=== PATIENT | male | born 1955 | race African-American/Black ===

== ENCOUNTER 2019-06-21 01:20 | Inpatient (IN) ==
[2019-06-21 02:09] LABS: BASO# 0.06 X1000 (0.0-0.2); BASO% 0.9 % (0.0-0.8); EOS# 0.16 X1000 (0.0-0.7); EOS% 2.3 % (0.0-10.0); HEMATOCRIT 41.1 % (42.0-52.0); HEMOGLOBIN 13.2 g/dL (14.0-18.0); IMM GRAN# 0.04 X1000 (0.0-0.04); IMM GRAN% 0.6 % (0.0-0.5); LYMPH# 1.61 X1000 (1.2-3.4); LYMPH% 23.2 % (20.5-51.1); MCH 26.4 PG (27-31); MCHC 32.1 g/dL (33-37); MCV 82.2 FL (81-99); MONO# 0.81 X1000 (0.11-0.59); MONO% 11.7 % (1.7-9.3); MPV 10.6 FL (7.4-10.4); NEUT# 4.26 X1000 (1.4-6.5); NEUT% 61.3 % (42.2-75.2); PLT 366 X1000 (130-400); RDW 15.1 % (11.5-14.5); WBC 6.94 X1000 (4.8-10.8)
[2019-06-21 03:38] LABS: AGAP 13; ALBUMIN 4.5 g/dL (3.5-5.0); ALKALINE PHOSPHATASE 131 U/L (32-122); BUN 12 mg/dL (8-22); CALCIUM 9.7 mg/dL (8.8-10.2); CHLORIDE 98 mmol/L (98-107); COSMO 275; CREATININE 0.8 mg/dL (0.7-1.2); ESTIMATED GFR > 60; GLUCOSE 187 mg/dL (70-104); GOT 61 U/L (10-34); GPT 50 U/L (10-44); MAGNESIUM 1.7 mg/dL (1.5-2.7); POTASSIUM 5.4 mmol/L (3.5-5.1); SODIUM 135 mmol/L (136-145); TCO2 24 mmol/L (25-35); TOTAL PROTEIN 8.2 g/dL (6.3-8.3)
[2019-06-21 04:11] LABS: URINE SOURCE CLEAN CATCH
[2019-06-21 04:14] LABS: BILIRUBIN URINE NEGATIVE (NEGATIVE); BLOOD URINE NEGATIVE (NEGATIVE); COLOR YELLOW; GLUCOSE URINE 70 mg/dL (NEGATIVE); KETONE URINE NEGATIVE (NEGATIVE); LEUKOCYTES URINE NEGATIVE (NEGATIVE); NITRITE URINE NEGATIVE (NEGATIVE); PH URINE 6.5; PROTEIN URINE TRACE mg/dL (NEGATIVE); TURBIDITY URINE CLEAR (CLEAR); UROBILINOGEN URINE NORMAL (NORMAL)
[2019-06-21 04:35] LABS: UR AMPHETAMINES QUAL NONE DETECTED (NONE DETECT)
[2019-06-21 04:36] LABS: UR BARBITUATES QUAL NONE DETECTED (NONE DETECT); UR BENZODIAZEPIN QUAL NONE DETECTED (NONE DETECT); UR CANNABINOIDS QUAL NONE DETECTED (NONE DETECT); UR COCAINE QUAL NONE DETECTED (NONE DETECT); UR METHADONE QUAL NONE DETECTED (NONE DETECT); UR METHAMPHETAMINE QUAL NONE DETECTED (NONE DETECT); UR OPIATES QUAL NONE DETECTED (NONE DETECT); UR OXYCODONE QUAL NONE DETECTED (NONE DETECT); UR PCP QUAL NONE DETECTED (NONE DETECT); UR PROPOXYPHENE QUAL NONE DETECTED (NONE DETECT); UR TCA QUAL PRESUMPTIVE POSITIVE (NONE DETECT)
[2019-06-21 04:41] LABS: UR EPITHELIAL CELLS <10 /HPF (<10); URINE BACTERIA NEGATIVE /HPF; URINE CASTS NONE SEEN; URINE RBC <10 /HPF (<10); URINE SMALL ROUND CELLS NONE SEEN; URINE WBC <10 /HPF (<10); URINE YEAST NONE SEEN
--- NOTE | 2019-06-21 05:33 | PROVIDER DOCUMENTATION ---
This chart was entered by Imani Serrano Scribe, acting as scribe for Deuce Joy DO. HPI-Head Injury - General Chief Complaint: Fall Stated Complaint: FALL Time Seen by Provider: 06/21/19 01:26 Source: patient Allergies/Adverse Reactions: Patient Allergies Allergy/AdvReac Type Severity Reaction Status Date / Time cephalexin Allergy Unknown Verified 04/18/18 17:31 ibuprofen Allergy Unknown Verified 04/18/18 17:31 reactive tst AdvReac Unknown Uncoded 04/18/18 17:31 Home Medications: Home Medication List Medication Instructions Recorded Confirmed Last Taken Type Amlodipine [Norvasc] 5 mg PO DAILY 06/11/15 06/11/15 06/11/15 History Aripiprazole 30 mg PO QHS 06/11/15 06/11/15 06/10/15 History Doxepin HCl 2 cap PO QHS 06/11/15 06/11/15 06/10/15 History Fluphenazine Decanoate [Prolixin-D] 125 mg IM DIRECTED 06/11/15 06/11/15 06/05/15 History Hydrochlorothiazide 25 mg PO DAILY 06/11/15 06/11/15 06/11/15 History Lisinopril 20 mg PO DAILY 06/11/15 06/11/15 06/11/15 History Meclizine [Antivert] 12.5 mg PO TID PRN #12 tablet 06/11/15 Unknown Rx Melatonin 3 mg PO QHS 06/11/15 06/11/15 06/10/15 History Metformin HCl 500 mg PO BID 06/11/15 06/11/15 06/11/15 History Multivit,Tx with Iron,Minerals 1 each PO DAILY 06/11/15 06/11/15 06/11/15 History [Thera-M] Pyridoxine 50 mg PO DAILY 06/11/15 06/11/15 06/11/15 History Naproxen 500 mg PO BID PRN PRN #20 tab 04/09/17 Unknown Rx Acetaminophen [Pain Relief] 650 mg PO Q4-6H PRN PRN #50 tab 04/18/18 Unknown Rx Amoxicillin 500 mg PO TID #42 cap 04/18/18 Unknown Rx Mupirocin Calcium [Bactroban Nasal] 1 gm NS BID 7 Days #1 oint...g. 04/18/18 Unknown Rx Oxymetazoline Nasal [place] [Afrin 2 spray MAYELA Q12HR #1 bottle 04/18/18 Unknown Rx Nasal [place]] Prednisone 20 mg PO BID #10 tab 04/18/18 Unknown Rx - History of Present Illness-Head Injury Nature of Presenting Problem: Patient is a 64 y/o male presenting to the ED today c/o head injury. Patient was brought in after having a fall at the [facility] where he resides immediately prior to arrival. Patient reports he has been having difficulty walking over the last week. Patient states he was seen at his PCP about this on Friday where he was diagnosed with vertigo. Patient does not complain about dizziness but reports he has difficulty ambulating because his "legs won't work". Patient reports history of hypertension and non-insulin dependent diabetes but denies prior strokes. Patient denies all other signs/symptoms. Onset/Duration: reports: just prior to arrival Loss of Consciousness: no loss of consciousness Injury Associated Symptoms: reports: weakness (left sided - preceded fall), trouble walking (preceded fall) Locality of [place]: Home Similar Symptoms Previously?: No Recently seen or treated by another doctor?: Yes (seen by PCP Dr. Juárez on 06/18) Review of Systems - Adult - REVIEW OF SYSTEMS - ADULT Constitutional: denies: chills, fever Eyes: reports: no symptoms reported Ears, Nose, Mouth & Throat: reports: no symptoms reported Cardiovascular: denies: chest pain Respiratory: denies: cough, shortness of breath Gastrointestinal: denies: abdominal pain, diarrhea, nausea, vomiting Genitourinary: reports: no symptoms reported Musculoskeletal: reports: no symptoms reported Integumentary: reports: no symptoms reported Neurological: reports: slurred speech, other (left sided weakness) Psychiatric: reports: no symptoms reported Endocrine: reports: no symptoms reported Hematologic/Lymphatic: reports: no symptoms reported Allergic/Immunologic: reports: no symptoms reported All Other Systems: Reviewed and Negative Past History - Adult - PAST MEDICAL HISTORY-ADULT Review of Records: reports: Old Records Reviewed, Nursing Assessment Review, Medications Reviewed, Social history reviewed & non-contributory. Major Childhood Illnesses: reports: denies history Cardiovascular: reports: HTN Respiratory: reports: asthma, tuberculosis (hist of ) Gastrointestinal: reports: hepatitis (C) Obstetrical/Gynecological: reports: denies history Genitourinary: reports: denies history Musculoskeletal: reports: denies history Neurological: reports: denies history Psychiatric: reports: schizophrenia Endocrine/Immune: reports: anemia Other Conditions: reports: denies history - PRIOR SURGERIES/PROCEDURES Surgical/Procedure History: reports: reviewed, not pertinent - IMMUNIZATION STATUS Childhood Immunizations: See Nurse Assessment Flu Vaccine: See Nurse Assessment - FAMILY HISTORY Family History: reviewed, not pertinent - SOCIAL HISTORY Smoking: cigarettes, greater than 1 pack/day Physical Exam- Neurological - Physical Exam-Neuro Initial Vital Signs Reviewed: Yes General Appearance: alert, no apparent distress, slow to respond Eye Exam: bilateral eye: EOMI, other (bilateral cataracts, can't see eye grounds) HENMT: normocephalic/atraumatic, moist mucous membranes, normal ENT inspection, pharynx normal Head Injury: no evidence of injury Neck: full range of motion, normal inspection Respiratory: no respiratory distress, no accessory muscle use, decreased breath sounds (bases rt>lt pos: hx COPD/RAD sat : 91% RA 97% 2LNC), crackles Cardiovascular: regular rate, rhythm, no edema, no murmur Abdominal Exam: non tender, soft, abnormal bowel sounds (hypoactive) Lymphatic: no adenopathy Extremity: normal range of motion, normal gait, normal inspection zinc plater Exam: normal hearing, normal speech, tongue deviation to R Coordination/Gait: ABN nose to finger (R) (passes plane) Motor/Sensory: pronator drift (L) (right upper and lower extremities), other (unable to dorsiflex left foot) Neurologic: motor weakness Integumentary: normal color, normal turgor, warm/dry Psych/Mental Status: normal mood/affect, normal thought content, normal thought process - Glascow Coma Scale Total Glascow Score: 15 Progress - PLAN OF CARE/RESULTS Progress/Plan/Lab Results: Vital Signs - 8 hr 06/21/19 01:20 06/21/19 04:50 Temperature 97.7 F Pulse Rate 88 72 Respiratory Rate 18 16 Blood Pressure 143/79 126/78 O2 Sat by Pulse Oximetry 98 98 Laboratory Results - last 24 hr 06/21/19 06/21/19 06/21/19 01:45 01:45 03:45 WBC 6.94 RBC 5.00 Hgb 13.2 L Hct 41.1 L MCV 82.2 MCH 26.4 L MCHC 32.1 L RDW Std Deviation 15.1 H Plt Count 366 MPV 10.6 H Immature Gran % (Auto) 0.6 H Neut % (Auto) 61.3 Lymph % (Auto) 23.2 [place] % (Auto) 11.7 H Eos % (Auto) 2.3 Baso % (Auto) 0.9 H Immature Gran # (Auto) 0.04 Neut # (Auto) 4.26 Lymph # (Auto) 1.61 [place] # (Auto) 0.81 H Eos # (Auto) 0.16 Baso # (Auto) 0.06 Sodium 135 L Potassium 5.4 H Chloride 98 Carbon Dioxide 24 L Anion Gap 13 BUN 12 Creatinine 0.8 Estimated GFR/1.73 m2 > 60 BUN/Creatinine Ratio 15 Glucose 187 H Calculated Osmolality 275 Calcium 9.7 Magnesium 1.7 Total Bilirubin 0.40 AST 61 H ALT 50 H Alkaline Phosphatase 131 H Total Protein 8.2 Albumin 4.5 Globulin 4.0 Albumin/Globulin Ratio 1.0 Urine Source CLEAN CATCH Urine Color YELLOW Urine Turbidity CLEAR Urine pH 6.5 Ur Specific [place] 1.010 Urine Protein TRACE A Ur Glucose (Stick) 70 A Ur Ketones (Stick) NEGATIVE Urine Blood NEGATIVE Urine Nitrite NEGATIVE Urine Bilirubin NEGATIVE Urobilinogen Dipstick NORMAL Urine Leukocytes NEGATIVE Urine WBC (Auto) <10 Urine RBC (Auto) <10 U Epithel Cells (Auto) <10 Urine Bacteria (Auto) NEGATIVE Urine Crystals Not Reportable Small Round Cells NONE SEEN Urine Casts NONE SEEN Urine Yeast-like Cells NONE SEEN Urine Opiates Screen Ur Oxycodone Screen Urine Methadone Screen U Propoxyphene Qual Ur Barbituates Screen Ur Tricyclics Screen Ur Phencyclidine Scrn Ur Amphetamines Screen U Methamphetamines Scrn U Benzodiazepines Scrn Urine Cocaine Screen U Cannabinoids Screen 06/21/19 03:45 WBC RBC Hgb Hct MCV MCH MCHC RDW Std Deviation Plt Count MPV Immature Gran % (Auto) Neut % (Auto) Lymph % (Auto) [place] % (Auto) Eos % (Auto) Baso % (Auto) Immature Gran # (Auto) Neut # (Auto) Lymph # (Auto) [place] # (Auto) Eos # (Auto) Baso # (Auto) Sodium Potassium Chloride Carbon Dioxide Anion Gap BUN Creatinine Estimated GFR/1.73 m2 BUN/Creatinine Ratio Glucose Calculated Osmolality Calcium Magnesium Total Bilirubin AST ALT Alkaline Phosphatase Total Protein Albumin Globulin Albumin/Globulin Ratio Urine Source Urine Color Urine Turbidity Urine pH Ur Specific [place] Urine Protein Ur Glucose (Stick) Ur Ketones (Stick) Urine Blood Urine Nitrite Urine Bilirubin Urobilinogen Dipstick Urine Leukocytes Urine WBC (Auto) Urine RBC (Auto) U Epithel Cells (Auto) Urine Bacteria (Auto) Urine Crystals Small Round Cells Urine Casts Urine Yeast-like Cells Urine Opiates Screen NONE DETECTED Ur Oxycodone Screen NONE DETECTED Urine Methadone Screen NONE DETECTED U Propoxyphene Qual NONE DETECTED Ur Barbituates Screen NONE DETECTED Ur Tricyclics Screen PRESUMPTIVE POSITIVE A Ur Phencyclidine Scrn NONE DETECTED Ur Amphetamines Screen NONE DETECTED U Methamphetamines Scrn NONE DETECTED U Benzodiazepines Scrn NONE DETECTED Urine Cocaine Screen NONE DETECTED U Cannabinoids Screen NONE DETECTED Orders Category Date Time Status IV Insertion ORDERED Care 06/21/19 01:[address] HEAD W/O CONTRAST [CT] Stat Exams 06/21/19 01:37 Taken CBC WITH ELECTRONIC DIFF [HEME] Stat Lab 06/21/19 01:45 Completed COMPREHENSIVE METABOLIC PANEL [CHEM] Stat Lab 06/21/19 01:45 Completed MAGNESIUM [CHEM] Stat Lab 06/21/19 01:45 Completed UA NIMS W/REFLEX CULT [URINALYSIS] Stat Lab 06/21/19 03:45 Completed URINE DRUG SCREEN PL Stat Lab 06/21/19 03:45 Completed URINE MANUAL MICROSCOPIC [URINALYSIS] Stat Lab 06/21/19 03:45 Completed Result Diagrams: 06/21/19 01:45 06/21/19 01:45 - REASSESSMENT Reassessment #1 Status: unchanged (still has lt side weakness blood pressure has improved discussed labs/xrays with patient in depth --) Reassessment #2 Time Reassessed: 05:32 Departure - Departure Date of Disposition Decision: 06/21/19 Time of Disposition Decision: 04:53 DIAGNOSIS: HTN (hypertension), malignant CVA (cerebral vascular accident) Qualifiers: CVA mechanism: unspecified Qualified Code(s): I63.9 - Cerebral infarction, unspecified COPD (chronic obstructive pulmonary disease) Qualifiers: COPD type: unspecified COPD Qualified Code(s): J44.9 - Chronic obstructive pulmonary disease, unspecified Disposition: ADMITTED INPATIENT 09 Certified Medical Emergency: Emergent Condition: Stable Referrals and Follow-Ups: None,PCP [NON-STAFF PROVIDER] - - Critical Care Note This patient required my direct & personal management of CC.: No Attestation - Physician/ LOIS Attestation Patient care was provided by Advanced Practice Provider:: No The physician spent face to face time with patient:: Yes Advanced Practice Provider documentation review:: Supervising physician onsite and consulted in the evaluation and care of this patient. The physician did have a face to face encounter with the patient. - NIH Stroke Scale NIH Type: Initial Evaluation Level of Consciousness: 0-Alert LOC Questions (ask month and age): 0-Answers Both Correctly LOC Commands (ask to open & close eyes;make a fist, let go): 0-Obeys Both Correctly Best Gaze (horizontal eye movement): 0-Normal Visual (use finger movement, counting or visual threat): 0-No Visual Loss Facial Palsy (show teeth or raise eyebrows & close eyes tght: 1-Minor Paralysis Motor Function-left arm: 1-Drift Motor Function-right arm: 0-Normal Motor Function-left le-Drift Motor Function-right le-Normal Limb Ataxia([id number]-[id number]-[id number], or heel to daily): 1-Present in one limb Sensory(pin prick to face,arms,trunk,legs-compare side/side): 0-No Ataxia Best Language(name item/read sentence.Ex-Down to Earth): 1-Mild to Moderate Aphasia Dysarthria(Pt read words or say words Ex.Mama,Tip-Top,Thanks: 0-Normal Ar ticulation Extinction and Inattention: 0-Normal NIH Total Score: 5 This chart was documented by the indicated scribe, (Imani Serrano, Colette) and accurately reflects the services I performed and decisions made by me, Deuce Joy DO, as attested by the provider's signature.
[2019-06-21] MEDS ORDERED: NS 1,000 ML IV ONE (05:36)
--- NOTE | 2019-06-21 08:43 | Diag Imaging Result Doc PS360 ---
EXAM: CT HEAD W/O CONTRAST HISTORY: lt sided weakness for the past 1 week TECHNIQUE: Images were obtained from the skull base to vertex without IV contrast as per standard protocol. This exam was performed using automated exposure control, adjustment of mA or kV according to patient size, and/or use of iterative reconstruction technique. COMPARISON: None. Extra-axial spaces: Normal. No hematoma is appreciated. Ventricular system /subarachnoid spaces/cisterns: Unremarkable. No hydrocephalus. No hemorrhage is appreciated. Cerebral parenchyma: Mild to moderate diffuse cerebral atrophy. Moderate deep white matter hypodensity most often related to microvascular disease. Hypodensity within the right lateral angelica of undetermined age. No hemorrhage is appreciated. Midline shift: None. Cerebellum: Unremarkable. Calvarium: No fracture is identified. Paranasal sinuses and mastoid air cells: No significant opacification. Visualized orbits: Normal. Preliminary interpretation was given by [facility]. IMPRESSION: Atrophy and deep white matter changes most often secondary to microvascular disease. Nonspecific hypodensity within the right lateral angelica. Electronically signed by Mabel Lin 06/21/2019 8:41 AM
[2019-06-21] MEDS ORDERED: GLUCOPHAGE PO SCH (09:00)
--- NOTE | 2019-06-21 09:15 | Diag Imaging Result Doc PS360 ---
US ABDOMEN-COMPLETE - 06/21/2019 INDICATION: abd pain; distention COMPARISON: None FINDINGS: There is a large contained fluid collection in the inferior abdomen/pelvis. This may be a distended urinary bladder. There is mild to moderate bilateral hydronephrosis. Renal sizes are grossly normal. The pancreas is obscured. The liver, gallbladder, and spleen are normal. Common bile duct measures 5.5 mm. Main portal vein is patent. Aorta and IVC are obscured. IMPRESSION: 1. Large contained fluid collection in the inferior abdomen/pelvis. This may be a distended urinary bladder. 2. Bilateral hydronephrosis. 3. Recommend CT abdomen pelvis, contrast is optional. Electronically signed by Sae Stevens 06/21/2019 9:13 AM
--- NOTE | 2019-06-21 09:52 | HISTORY AND PHYSICAL ---
CONTINUATION REPORT: LABORATORY DATA: Sodium 135, potassium 5.4, BUN 12, creatinine 0.8, glucose 187, calcium 9.7, magnesium 1.7, bilirubin 0.4, AST 61, ALT 50, alkaline phosphatase is 131, albumin is 4.5. Urinalysis trace protein, 70 glucose. Urine drug screen positive tricyclics. IMAGING: Head CT, preliminary report, chronic changes without acute intracranial pathology. ASSESSMENT AND PLAN: 1. Complaints of lower extremity weakness. Currently, we will just order physical therapy. Head CT was negative for stroke. Neurologic exam is not significant for stroke as well. He states it has been going on for at least 2 weeks. 2. Abdominal pain with distention. We will get abdominal ultrasound. He does have a history of alcohol. However, he states it is only one-fifth of vodka in a month. 3. Transaminitis. We will get a hepatitis panel, also add amylase and lipase to it. 4. Hypertension. Continue home medications. 5. Diabetes mellitus type 2. We will do pattern blood glucoses, sliding scale insulin, and home medications. 6. Schizophrenia. Continue home medications. States that he has visual hallucinations only at night. He sees demons that say I am going to get you. He states that it is normal for him. It has been going on for a very long time. 7. Deep venous thrombosis prophylaxis. Sequential compression devices. 8. Tobacco abuse. Cessation discussed. He claims that he was started on a medication 2 months ago to help him stop smoking. The name of the medication I assume is Wellbutrin, as it most recently was started, which is sometimes used for smoking cessation. Dictated by TRAVIS Rosado for Al Aly MD cc: TRAVIS Rosado MD
[2019-06-21 10:23] LABS: AMYLASE 115 U/L (20-200); LIPASE 22 U/L (13-60)
[2019-06-21] MEDS: DUONEB (A & A) INH SCH ×3 (11:51→22:24)
--- NOTE | 2019-06-21 13:57 | HISTORY AND PHYSICAL ---
PRIMARY CARE PROVIDER: Sae Cervantes MD PSYCHIATRIST: Dr. Trenton Pérez CHIEF COMPLAINT: Lower extremity weakness. HISTORY OF PRESENT ILLNESS: Mr. Car Landin is a 64-year-old male with a medical history of hypertension, diabetes, schizophrenia, current smoker, current marijuana daily use, and about one-fifth of vodka per month. He lives in a half-way, is presenting with complaints of lower extremity weakness. He states that they essentially just have been giving- out. He claims that it has been for at least 2 weeks, legs feel trembly. Yesterday had a fall and fell forward, hit his head. He denies any dizziness, shortness of breath. No lightheadedness. No chest pain. No fever or chills. Visual changes, he claims he sees demons at night that tell him "I am going to get you" but he claims that is not new. He has had that for a long time with his schizophrenia. Apparently, this past Friday, he states he saw the nurse where he was diagnosed with vertigo, but denies any dizziness. Neurological assessment seems to be pretty intact. He does have some mild discoordination of the lower extremities, but not very significant. However, during his abdominal assessment, he is distended, is semifirm, hypoactive. It is tender to palpation, but he states he did not even realize his abdomen had these issues. Initial head, CT there are no acute findings. However, we will go ahead and further evaluate his abdomen, pain, distention, and we will order physical therapy for the lower extremities as well. He does state that he started a new medication, he claims to be 2 months ago, it was a pill to stop smoking. However, he is not sure which medication that would be. No complaints of infections such as fever, chills, denies all of that. PAST MEDICAL HISTORY: 1. Hypertension. 2. Diabetes mellitus type 2. 3. Schizophrenia. SURGICAL HISTORY: Right wrist surgical repair after fracture. SOCIAL HISTORY: He currently resides at [facility]. He has 11th grade level education. He is less than 1/2-gnur-nqq-day smoker. States he started smoking at the age of 3. Drinks vodka and orange juice, but claims he only goes through about one-fifth in 1 month, one- fifth of vodka in 1 month, and smokes marijuana daily. Denies any other illicit drug use. States prior to the legs being weak, he has not had any issues. He has been able to ambulate without difficulties. FAMILY HISTORY: Mother he claims had tuberculosis. Father unknown. ALLERGIES: Cephalexin, ibuprofen, and a reactive test. HOME MEDICATIONS: 1. Doxepin 150 mg p.o. nightly. 2. Aripiprazole 30 mg p.o. daily. 3. Wellbutrin 300 mg p.o. daily. 4. Glipizide 5 mg p.o. daily. 5. Lisinopril 20 mg p.o. daily. 6. Metformin 500 mg p.o. twice daily. 7. Norvasc 10 mg p.o. daily. 8. Fluphenazine decanoate 125 mg intramuscular every 14 days. 9. Pyridoxine 50 mg p.o. daily. REVIEW OF SYSTEMS: A 14-point review of systems are complete and all were negative except those mentioned above in the HPI. PHYSICAL EXAMINATION: VITAL SIGNS: Temperature 97.7 degrees, heart rate 72, respiratory rate 16, blood pressure 126/78, and O2 saturation 98% on 2 liters. GENERAL: Mr. Car Landin is a 64-year-old male. He is in no acute distress. He is able answer questions appropriately. HEENT: Atraumatic, normocephalic. Pupils equal, round, reactive to light. Extraocular movements intact. Mucous membranes are dry. He does have scabbing, like scaling of skin on the bridge of his nose. NECK: Trachea midline. CARDIOVASCULAR: S1, S2. Regular rate and rhythm. No rubs, gallops, murmurs. No lower extremity edema. He has +2 dorsalis and radial pulses. Negative JVD or carotid bruits. PULMONARY: Clear to auscultate, bilateral breath sounds. No accessory muscle use or work of breathing noted. GASTROINTESTINAL: Semifirm, tender in all 4 quadrants and distended with hypoactive bowel sounds x4. EXTREMITIES: Moves all extremities equally. There may be some mild discoordination of the lower extremities. No numbness or tingling. NEUROLOGIC: Alert and oriented x3. Follows commands. Sensory is intact. SKIN: Warm, dry, and intact except for the scaling on his nose. LABORATORY DATA: White blood cells 6000, hemoglobin 13, hematocrit 41, platelet count 366,000. Sodium 135, potassium 5.4, BUN 12, creatinine 0.8, glucose 187, calcium 9.7, magnesium 1.7, bilirubin 0.4, AST 61, ALT 50, alkaline phosphatase is 131, albumin 4.5.......... INCOMPLETE REPORT -- DICTATION ENDS HERE. Dictated by TRAVIS Rosado for Al Aly MD cc: TRAVIS Rosado MD
--- NOTE | 2019-06-21 15:06 | HISTORY AND PHYSICAL ---
PRIMARY CARE PHYSICIAN: Dr. Sae Cervantes PSYCHIATRIST: Dr. Trenton Padilla CHIEF COMPLAINT: Lower extremity weakness, legs giving out. HISTORY OF PRESENT ILLNESS: Mr. Car Landin is a 64-year-old -Romanian male with a medical history of hypertension, diabetes mellitus Type 2, schizophrenia, tobacco abuse who is here with complaints of lower extremity weakness and is discoordinated. He states this has been going on for 2 weeks. He was recently seen by a nurse who he states diagnosed him with vertigo; however, he denies any dizziness or lightheadedness. He feels like his legs are trembling; however, upon examination, neurologically intact. Strength is equal. There is some bobbing of the lower extremities when holding them up. Head CT was negative for any acute finding. During examination, palpation of the abdomen caused abdominal pain throughout. He is distended with hypoactive bowel sounds. He states that he has normal bowel movements, that he has not had nausea or vomiting and he denies that he has been having any abdominal pain until during this examination. So, we will evaluate his abdominal issue and order physical therapy for the lower extremity weakness. It is noted that he states he fell and hit his face; however, there are no obvious abrasions or contusions. PAST MEDICAL HISTORY: 1. Hypertension. 2. Diabetes mellitus Type 2. 3. Schizophrenia. SURGICAL HISTORY: Right wrist surgical repair after fracture. SOCIAL HISTORY: Eleventh grade education. Lives at [facility]. Less than half a pack per day smoker since age of 3. He drinks a fifth of vodka per month with orange juice. He smokes marijuana daily. FAMILY HISTORY: Mother TB. Father unknown. ALLERGIES: Cephalexin, ibuprofen and reactive test. HOME MEDICATIONS: 1. Doxepin 150 mg p.o. nightly. 2. Aripiprazole 30 mg p.o. daily. 3. Wellbutrin 300 mg p.o. daily. 4. Glipizide 5 mg p.o. daily. 5. Lisinopril 20 mg p.o. daily. 6. Metformin 500 mg p.o. twice daily. 7. Norvasc 10 mg p.o. daily. 8. Fluphenazine Decanoate 125 mg intramuscular q 14 days. 9. Pyridoxine 50 mg p.o. daily. REVIEW OF SYSTEMS: A 14-point review of systems are complete, and all are negative except for those mentioned above in the HPI. PHYSICAL EXAMINATION: VITAL SIGNS: Temperature 97.6, heart rate 82, respiratory rate 16, blood pressure 133/66, O2 saturation 99% on 2 liters nasal cannula, 5 feet 11 inches tall, 200 pounds, BMI 27.9. GENERAL: Mr. Car Landin is a 64-year-old -Romanian male. He is in no acute distress. He is able to answer questions appropriately. HEENT: Atraumatic, normocephalic. Pupils equal, round, reactive to light. Extraocular movements intact. Mucous membranes are dry. He has some skin flaking on the nose. NECK: Trachea midline. CARDIOVASCULAR: S1, S2. Regular rate and rhythm. No rubs, gallops, murmurs. No lower extremity edema. There are +2 dorsalis and radial pulses. Negative for JVD or carotid bruits. PULMONARY: Clear to auscultate bilateral breath sounds. No accessory muscle use or work of breathing noted. GASTROINTESTINAL: He is distended, semifirm, tender in all 4 quadrants with hypoactive bowel sounds. EXTREMITIES: Moves all extremities equally. Full range of motion with some bobbing of the lower extremities when being held elevated. No numbness or tingling. NEUROLOGICAL: A and O x 3. Follows commands. Sensory is intact. SKIN: Warm, dry, intact except for the flaking of skin on his nose. LABORATORY DATA: WBC 6000, hemoglobin 13, hematocrit 41, platelet count 366,000. There is a second dictation that completes the laboratory data, imaging, and assessment and plan. Dictated by TRAVIS Rosado for Al Aly MD cc: TRAVIS Rosado MD
[2019-06-21] MEDS: HUMULIN R (PARKWAY) SUBQ SCH ×3 (15:13→21:54)
--- NOTE | 2019-06-21 15:13 | Diag Imaging Result Doc PS360 ---
EXAM: CT ABD/PELVIS W/PO AND IV CON HISTORY: abd pain; distention TECHNIQUE: This exam was performed using automated exposure control, adjustment of mA or kV according to patient size, and/or use of iterative reconstruction technique. COMPARISON: None. FINDINGS: Lung bases: Mild dependent changes. Hepatobiliary: Normal liver attenuation. No intrahepatic or extrahepatic biliary ductal dilatation is identified. No calcified gallstones are seen. No suspicious masses are appreciated. Pancreas/Adrenal glands/Spleen: Normal size and enhancement. No cysts or solid masses are appreciated. Kidneys: No nephrolithiasis . There is bilateral hydroureteronephrosis secondary to marked distention of the urinary bladder.. Normal bilateral renal enhancement. No suspicious masses. Retroperitoneum: Normal caliber aorta. No lymphadenopathy. There is calcific atherosclerotic disease. Bowel/Mesentery: Severe constipation.. No mesenteric lymphadenopathy is appreciated. No free air or free fluid is identified. Appendix: Poorly visualized.. No evidence for acute appendicitis. Pelvis: Reproductive organs show no acute abnormality. Urinary bladder is distended above the level of the umbilicus. Decompression recommended. No acute bony abnormality is demonstrated. IMPRESSION: 1.Severe distention of the urinary bladder above the level of the umbilicus. Bilateral hydroureteronephrosis. Decompression is recommended. 2.Marked constipation. Electronically signed by Mabel Lin 06/21/2019 3:11 PM
[2019-06-21] MEDS: GLUCOTROL PO SCH (15:35)
[2019-06-21] MEDS: NORVASC PO SCH (15:35)
[2019-06-21] MEDS: PRINIVIL PO SCH (15:35)
[2019-06-21] MEDS: PYRIDOXINE PO SCH (15:36)
[2019-06-21] MEDS: WELLBUTRIN XL PO SCH (15:36)
--- NOTE | 2019-06-21 21:25 | HISTORY AND PHYSICAL ---
ADDENDUM: Patient was seen and examined by myself. Full note dictated and discussed with nurse practitioner. Patient presented to the hospital. He had lower extremity weakness. He has been falling. They initially felt he may have had a stroke; however, he has no new acute focal weakness, but he does have bilateral lower extremity weakness. We are going to admit him to the hospital, get physical therapy. He does have some abdominal distention that appears to be new. We are going to check an ultrasound. We will treat his diabetes. We will monitor his schizophrenia. Further orders as needed. His CT did demonstrate severe distention of the urinary bladder with bilateral hydroureteronephrosis. We have placed a Flores and will follow. cc: Al Aly MD
[2019-06-21] MEDS: SINEQUAN PO SCH (21:50)
[2019-06-22] MEDS: HUMULIN R (PARKWAY) SUBQ SCH ×4 (06:22→22:13)
[2019-06-22 07:52] LABS: BASO# 0.04 X1000 (0.0-0.2); BASO% 0.5 % (0.0-0.8); EOS% 1.3 % (0.0-10.0); HEMATOCRIT 41.2 % (42.0-52.0); HEMOGLOBIN 13.3 g/dL (14.0-18.0); IMM GRAN# 0.03 X1000 (0.0-0.04); IMM GRAN% 0.4 % (0.0-0.5); LYMPH# 2.32 X1000 (1.2-3.4); LYMPH% 29.6 % (20.5-51.1); MCH 26.2 PG (27-31); MCHC 32.3 g/dL (33-37); MCV 81.1 FL (81-99); MONO% 11.5 % (1.7-9.3); MPV 9.4 FL (7.4-10.4); NEUT# 4.45 X1000 (1.4-6.5); NEUT% 56.7 % (42.2-75.2); PLT 431 X1000 (130-400); RBC 5.08 XMIL (4.7-6.1); RDW 14.9 % (11.5-14.5); WBC 7.84 X1000 (4.8-10.8)
[2019-06-22 08:16] LABS: AGAP 13; ALBUMIN 4.1 g/dL (3.5-5.0); ALKALINE PHOSPHATASE 108 U/L (32-122); BUN 8 mg/dL (8-22); CALCIUM 9.2 mg/dL (8.8-10.2); CHLORIDE 98 mmol/L (98-107); COSMO 269; CREATININE 0.8 mg/dL (0.7-1.2); ESTIMATED GFR > 60; GLUCOSE 112 mg/dL (70-104); GOT 49 U/L (10-34); GPT 44 U/L (10-44); POTASSIUM 4.3 mmol/L (3.5-5.1); SODIUM 135 mmol/L (136-145); TCO2 24 mmol/L (25-35); TOTAL PROTEIN 7.7 g/dL (6.3-8.3)
[2019-06-22] MEDS: GLUCOPHAGE PO SCH ×2 (09:56→16:43)
[2019-06-22] MEDS: PYRIDOXINE PO SCH (09:56)
[2019-06-22] MEDS: ABILIFY PO SCH (09:56)
[2019-06-22] MEDS: PRINIVIL PO SCH (09:57)
[2019-06-22] MEDS: GLUCOTROL PO SCH (09:57)
[2019-06-22] MEDS: WELLBUTRIN XL PO SCH (09:57)
[2019-06-22] MEDS: NORVASC PO SCH (09:57)
[2019-06-22] MEDS: DUONEB (A & A) INH SCH ×3 (10:37→21:44)
[2019-06-22] MEDS: FLOMAX PO SCH ×2 (11:04→21:02)
[2019-06-22] MEDS ORDERED: PROLIXIN-D IM SCH (14:00)
[2019-06-22 14:43] LABS: HEPATITIS PROFILE ACUTE SEE COMMENTS
[2019-06-22] MEDS: SINEQUAN PO SCH (21:02)
--- NOTE | 2019-06-22 22:56 | PROGRESS NOTE ---
DATE: 06/22/2019 SUBJECTIVE: Patient has no new complaints, although he does want the catheter out of his bladder. Denies any abdominal pain. Denies nausea or vomiting. PHYSICAL EXAM: Vital Signs: Temperature 97.8, pulse 87, respiratory rate 18, BP 111/68. General: Patient is pleasant. He is in no current respiratory distress. HEENT: Normocephalic. Neck: Supple. Cardiovascular: Regular rate. Chest: Clear nonlabored. Abdomen: Soft, still distended, although less so after the Flores catheter has been placed. Extremities: Moves all extremities. Neurologic: No changes. ASSESSMENT: 1. Abdominal distention secondary to urinary retention. Currently has a Flores catheter. 2. Generalized weakness. 3. Severe hydroureteronephrosis. 4. Transaminitis. 5. Hypertension. 6. Diabetes. 7. Schizophrenia. PLAN: We will continue patient in the hospital. Recheck his labs in the a.m. We will attempt a bladder drain and see if he can urinate and will follow. Expect that he will need rehab and probably will need to continue with the catheter in rehab. cc: Al Aly MD
[2019-06-23 06:33] LABS: BASO# 0.04 X1000 (0.0-0.2); BASO% 0.6 % (0.0-0.8); EOS# 0.14 X1000 (0.0-0.7); EOS% 2.2 % (0.0-10.0); HEMATOCRIT 41.1 % (42.0-52.0); HEMOGLOBIN 13.4 g/dL (14.0-18.0); IMM GRAN# 0.04 X1000 (0.0-0.04); IMM GRAN% 0.6 % (0.0-0.5); LYMPH# 1.78 X1000 (1.2-3.4); LYMPH% 27.8 % (20.5-51.1); MCH 26.5 PG (27-31); MCHC 32.6 g/dL (33-37); MCV 81.4 FL (81-99); MONO# 0.84 X1000 (0.11-0.59); MONO% 13.1 % (1.7-9.3); MPV 9.6 FL (7.4-10.4); NEUT# 3.56 X1000 (1.4-6.5); NEUT% 55.7 % (42.2-75.2); PLT 426 X1000 (130-400); RBC 5.05 XMIL (4.7-6.1); RDW 14.9 % (11.5-14.5)
[2019-06-23 06:59] LABS: AGAP 12; ALKALINE PHOSPHATASE 107 U/L (32-122); BUN 10 mg/dL (8-22); CALCIUM 9.2 mg/dL (8.8-10.2); CHLORIDE 97 mmol/L (98-107); COSMO 268; CREATININE 0.8 mg/dL (0.7-1.2); ESTIMATED GFR > 60; GLUCOSE 146 mg/dL (70-104); GOT 48 U/L (10-34); GPT 45 U/L (10-44); POTASSIUM 4.2 mmol/L (3.5-5.1); SODIUM 133 mmol/L (136-145); TCO2 23 mmol/L (25-35); TOTAL PROTEIN 7.4 g/dL (6.3-8.3)
[2019-06-23] MEDS: HUMULIN R (PARKWAY) SUBQ SCH ×4 (07:34→22:53)
[2019-06-23] MEDS ORDERED: FLU VACCINE IM ONE (08:00)
[2019-06-23] MEDS: ABILIFY PO SCH (09:17)
[2019-06-23] MEDS: GLUCOPHAGE PO SCH ×2 (09:17→16:46)
[2019-06-23] MEDS: PYRIDOXINE PO SCH (09:18)
[2019-06-23] MEDS: GLUCOTROL PO SCH (09:18)
[2019-06-23] MEDS: PRINIVIL PO SCH (09:18)
[2019-06-23] MEDS: NORVASC PO SCH (09:18)
[2019-06-23] MEDS: FLOMAX PO SCH ×2 (09:18→21:33)
[2019-06-23] MEDS: WELLBUTRIN XL PO SCH (09:19)
--- NOTE | 2019-06-23 09:23 | Diag Imaging Result Doc PS360 ---
US ABDOMEN-COMPLETE - 06/23/2019 INDICATION: follow up on previous abnl TECHNIQUE: Bernabe scale, color Doppler, and duplex evaluation of the abdomen was performed. Standard protocol. COMPARISON: None FINDINGS: The liver appears normal in size and echotexture. No focal masses are appreciated. The visualized portions of the IVC and aorta appear normal. The pancreas is obscured by bowel gas artifact. The gallbladder is free of stones and sludge has a normal caliber wall. The common bile duct measures 4 mm. The portal vein is patent with hepatopetal flow. Spleen is unremarkable. The kidneys appear normal bilaterally. There is no hydronephrosis. The distended urinary bladder has been decompressed via Flores catheter. IMPRESSION: Normal abdominal ultrasound. Electronically signed by Mabel Lin 06/23/2019 9:20 AM
[2019-06-23] MEDS: DUONEB (A & A) INH SCH ×3 (10:11→23:49)
[2019-06-23] MEDS: SINEQUAN PO SCH (21:33)
[2019-06-23] MEDS: LACTULOSE PO SCH (21:33)
--- NOTE | 2019-06-23 22:52 | PROGRESS NOTE ---
DATE: 06/23/2019 SUBJECTIVE: Patient himself has no complaints, although given his chronic psych history, it is difficult to get any answers from him. OBJECTIVE: Vital signs: Temperature 97 degrees, pulse 86, respiratory rate 18, BP 109/68. General: Patient is pleasant, currently in no respiratory distress. HEENT: Normocephalic. Neck: Supple. Cardiovascular: Regular rate. Chest: Clear. Abdomen: Soft, slightly distended, although much less so, nontender. ASSESSMENT: 1. Hydroureteronephrosis, appears resolved. 2. Abdominal distention appears improved. 3. Hypertension. 4. Diabetes. 5. Schizophrenia. PLAN: We are going to continue patient in the hospital, continue physical therapy, hopefully home over the next few days. cc: Al Aly MD
[2019-06-24 06:12] LABS: BASO# 0.03 X1000 (0.0-0.2); BASO% 0.4 % (0.0-0.8); EOS# 0.17 X1000 (0.0-0.7); EOS% 2.5 % (0.0-10.0); HEMATOCRIT 40.8 % (42.0-52.0); HEMOGLOBIN 13.2 g/dL (14.0-18.0); IMM GRAN# 0.04 X1000 (0.0-0.04); IMM GRAN% 0.6 % (0.0-0.5); LYMPH# 1.92 X1000 (1.2-3.4); LYMPH% 27.9 % (20.5-51.1); MCH 26.5 PG (27-31); MCHC 32.4 g/dL (33-37); MCV 81.9 FL (81-99); MONO# 0.87 X1000 (0.11-0.59); MONO% 12.7 % (1.7-9.3); MPV 9.7 FL (7.4-10.4); NEUT# 3.84 X1000 (1.4-6.5); NEUT% 55.9 % (42.2-75.2); PLT 409 X1000 (130-400); RBC 4.98 XMIL (4.7-6.1); RDW 14.6 % (11.5-14.5); WBC 6.87 X1000 (4.8-10.8)
[2019-06-24] MEDS: HUMULIN R (PARKWAY) SUBQ SCH ×3 (06:22→18:43)
[2019-06-24 06:31] LABS: AGAP 14; ALBUMIN 3.9 g/dL (3.5-5.0); ALKALINE PHOSPHATASE 108 U/L (32-122); BUN 12 mg/dL (8-22); CALCIUM 9.1 mg/dL (8.8-10.2); CHLORIDE 96 mmol/L (98-107); COSMO 266; CREATININE 0.9 mg/dL (0.7-1.2); ESTIMATED GFR > 60; GLUCOSE 133 mg/dL (70-104); GOT 58 U/L (10-34); GPT 51 U/L (10-44); MAGNESIUM 2.1 mg/dL (1.5-2.7); POTASSIUM 4.4 mmol/L (3.5-5.1); SODIUM 132 mmol/L (136-145); TCO2 22 mmol/L (25-35); TOTAL PROTEIN 7.6 g/dL (6.3-8.3)
--- NOTE | 2019-06-24 07:58 | Diag Imaging Result Doc PS360 ---
EXAM: KUB ABDOMEN - 06/24/2019 HISTORY: constipation TECHNIQUE: AP spine abdomen COMPARISON: 06/21/2019 CT abdomen/pelvis FINDINGS: The colon is diffusely distended with retained fecal debris, compatible with severe constipation. There is no abnormal gaseous small bowel distention identified. IMPRESSION: Severe constipation. Electronically signed by Dillan Novoa 06/24/2019 7:56 AM
[2019-06-24] MEDS ORDERED: FLEET ENEMA PR ONE (08:06)
[2019-06-24] MEDS: LACTULOSE PO SCH ×2 (08:59→21:08)
[2019-06-24] MEDS: PYRIDOXINE PO SCH (08:59)
[2019-06-24] MEDS: FLOMAX PO SCH ×2 (08:59→21:08)
[2019-06-24] MEDS: PRINIVIL PO SCH (08:59)
[2019-06-24] MEDS: GLUCOPHAGE PO SCH ×2 (08:59→18:31)
[2019-06-24] MEDS: WELLBUTRIN XL PO SCH (08:59)
[2019-06-24] MEDS: ABILIFY PO SCH (08:59)
[2019-06-24] MEDS: GLUCOTROL PO SCH (08:59)
[2019-06-24] MEDS: NORVASC PO SCH (08:59)
[2019-06-24] MEDS: DUONEB (A & A) INH SCH ×3 (10:04→22:27)
[2019-06-24 13:17] LABS: HCV BY PCR SEE COMMENTS
[2019-06-24] MEDS: SINEQUAN PO SCH (21:08)
--- NOTE | 2019-06-25 01:18 | PROGRESS NOTE ---
DATE: 06/24/2019 SUBJECTIVE: Patient has no new complaints. Notes that his abdomen is not quite as tender. Still is not having regular bowel movements. PHYSICAL EXAMINATION: Vital Signs: Temperature 97 degrees, pulse 87, respiratory rate 18, BP 109/70. General: Patient is pleasant. He is in no current distress lying in bed. HEENT: Normocephalic. Neck: Supple. Cardiovascular: Regular rate. Chest: Clear and nonlabored. Abdomen: Soft, diffusely tender. Positive but decreased bowel sounds. Genitourinary: Flores catheter in place. Extremities: Moves all extremities. Neurologic: No changes. ASSESSMENT: 1. Constipation. We will add MiraLAX and lactulose. 2. Hydroureteronephrosis, resolved on most recent ultrasound. 3. Hepatitis C. 4. Lower extremity weakness. 5. Transaminitis. 6. Diabetes type 2. 7. Schizophrenia. PLAN: We are going to continue patient in the hospital. Continue to treat constipation. Further orders as needed. cc: Al Aly MD
[2019-06-25] MEDS: HUMULIN R (PARKWAY) SUBQ SCH ×5 (01:33→23:10)
[2019-06-25 06:19] LABS: BASO# 0.03 X1000 (0.0-0.2); BASO% 0.3 % (0.0-0.8); EOS# 0.17 X1000 (0.0-0.7); HEMATOCRIT 39.7 % (42.0-52.0); HEMOGLOBIN 12.8 g/dL (14.0-18.0); IMM GRAN# 0.07 X1000 (0.0-0.04); IMM GRAN% 0.8 % (0.0-0.5); LYMPH# 1.91 X1000 (1.2-3.4); MCH 26.3 PG (27-31); MCHC 32.2 g/dL (33-37); MCV 81.7 FL (81-99); MONO# 1.05 X1000 (0.11-0.59); MONO% 12.1 % (1.7-9.3); MPV 9.8 FL (7.4-10.4); NEUT# 5.47 X1000 (1.4-6.5); NEUT% 62.8 % (42.2-75.2); PLT 420 X1000 (130-400); RBC 4.86 XMIL (4.7-6.1); RDW 14.7 % (11.5-14.5)
[2019-06-25 06:39] LABS: AGAP 14; ALKALINE PHOSPHATASE 126 U/L (32-122); BUN 19 mg/dL (8-22); CHLORIDE 98 mmol/L (98-107); COSMO 269; CREATININE 0.9 mg/dL (0.7-1.2); ESTIMATED GFR > 60; GLUCOSE 114 mg/dL (70-104); GOT 46 U/L (10-34); GPT 44 U/L (10-44); POTASSIUM 4.2 mmol/L (3.5-5.1); SODIUM 133 mmol/L (136-145); TCO2 21 mmol/L (25-35); TOTAL PROTEIN 7.2 g/dL (6.3-8.3)
[2019-06-25] MEDS: LACTULOSE PO SCH ×2 (08:31→22:21)
[2019-06-25] MEDS: WELLBUTRIN XL PO SCH (08:31)
[2019-06-25] MEDS: GLUCOTROL PO SCH (08:31)
[2019-06-25] MEDS: GLUCOPHAGE PO SCH ×2 (08:31→16:50)
[2019-06-25] MEDS: PRINIVIL PO SCH (08:31)
[2019-06-25] MEDS: FLOMAX PO SCH ×2 (08:31→22:20)
[2019-06-25] MEDS: ABILIFY PO SCH (08:32)
[2019-06-25] MEDS: PYRIDOXINE PO SCH (08:32)
[2019-06-25] MEDS: NORVASC PO SCH (08:32)
--- NOTE | 2019-06-25 10:49 | Diag Imaging Result Doc PS360 ---
EXAM: KUB ABDOMEN HISTORY: constipation f/u TECHNIQUE: Single view COMPARISON: 06/24/2019 FINDINGS: There is a large amount of stool throughout the colon. No organomegaly. No foreign body. No abnormal calcifications. IMPRESSION: Severe constipation with no interval improvement Electronically signed by Everardo Landry 06/25/2019 10:47 AM
[2019-06-25] MEDS: DUONEB (A & A) INH SCH ×3 (11:33→22:36)
[2019-06-25] MEDS ORDERED: FLEET ENEMA PR ONE (17:34)
[2019-06-25] MEDS ORDERED: CITRATE OF MAGNESIA PO ONE (19:00)
[2019-06-25] MEDS: SINEQUAN PO SCH (22:21)
--- NOTE | 2019-06-25 23:34 | PROGRESS NOTE ---
DATE: 06/25/2019 SUBJECTIVE: Patient notes that he has had bowel movements. Denies any abdominal pain. Denies cough, congestion. PHYSICAL EXAMINATION: Vital Signs: Temperature 97 degrees, pulse 87, respiratory rate 18, BP 109/70. General: Patient is awake, alert. He is in no distress. HEENT: Normocephalic. Neck: Supple. Cardiovascular: Regular rate. Chest: Clear. Abdomen: Soft. Extremities: Moves all extremities. ASSESSMENT: 1. Constipation. KUB actually is not improved. We are going to repeat an enema and give him magnesium citrate p.o. 2. Hydroureteronephrosis, appears resolved. We will attempt to bladder training and hopefully remove his Flores soon. 3. Hepatitis C. 4. Schizophrenia. 5. Diabetes. PLAN: We are going to continue patient in the hospital until which time he can transition to rehab. We will treat his constipation. cc: Al Aly MD MTDD
[2019-06-26 06:22] LABS: BASO# 0.05 X1000 (0.0-0.2); BASO% 0.6 % (0.0-0.8); EOS% 2.4 % (0.0-10.0); HEMATOCRIT 39.5 % (42.0-52.0); HEMOGLOBIN 12.5 g/dL (14.0-18.0); IMM GRAN# 0.04 X1000 (0.0-0.04); IMM GRAN% 0.5 % (0.0-0.5); LYMPH# 1.85 X1000 (1.2-3.4); LYMPH% 22.1 % (20.5-51.1); MCH 26.2 PG (27-31); MCHC 31.6 g/dL (33-37); MCV 82.6 FL (81-99); MONO# 0.96 X1000 (0.11-0.59); MONO% 11.5 % (1.7-9.3); MPV 9.7 FL (7.4-10.4); NEUT# 5.28 X1000 (1.4-6.5); NEUT% 62.9 % (42.2-75.2); PLT 423 X1000 (130-400); RBC 4.78 XMIL (4.7-6.1); RDW 14.9 % (11.5-14.5); WBC 8.38 X1000 (4.8-10.8)
[2019-06-26 06:33] LABS: AGAP 12; ALKALINE PHOSPHATASE 128 U/L (32-122); BUN 14 mg/dL (8-22); CALCIUM 9.1 mg/dL (8.8-10.2); CHLORIDE 99 mmol/L (98-107); COSMO 273; CREATININE 0.8 mg/dL (0.7-1.2); ESTIMATED GFR > 60; GLUCOSE 142 mg/dL (70-104); GOT 40 U/L (10-34); GPT 42 U/L (10-44); MAGNESIUM 2.1 mg/dL (1.5-2.7); POTASSIUM 4.8 mmol/L (3.5-5.1); SODIUM 135 mmol/L (136-145); TCO2 24 mmol/L (25-35); TOTAL PROTEIN 7.5 g/dL (6.3-8.3)
[2019-06-26] MEDS: HUMULIN R (PARKWAY) SUBQ SCH ×4 (06:33→21:09)
[2019-06-26] MEDS: GLUCOTROL PO SCH (09:13)
[2019-06-26] MEDS: NORVASC PO SCH (09:13)
[2019-06-26] MEDS: WELLBUTRIN XL PO SCH (09:13)
[2019-06-26] MEDS: PYRIDOXINE PO SCH (09:13)
[2019-06-26] MEDS: ABILIFY PO SCH (09:13)
[2019-06-26] MEDS: FLOMAX PO SCH ×2 (09:13→21:07)
[2019-06-26] MEDS: PRINIVIL PO SCH (09:13)
[2019-06-26] MEDS: GLUCOPHAGE PO SCH ×2 (09:13→16:56)
[2019-06-26] MEDS: LACTULOSE PO SCH ×2 (09:19→22:08)
[2019-06-26] MEDS: DUONEB (A & A) INH SCH ×3 (09:39→22:35)
[2019-06-26] MEDS: SINEQUAN PO SCH (21:07)
--- NOTE | 2019-06-26 23:17 | PROGRESS NOTE ---
DATE: 06/26/2019 SUBJECTIVE: The patient notes that he had a good bowel movement yesterday. Denies any abdominal pain. Denies fevers or chills. PHYSICAL EXAMINATION: Vital Signs: Temperature 98 degrees, pulse 93, respiratory 18, BP 118/63. General: Patient is pleasant, currently in no distress. HEENT: Normocephalic. Neck: Supple. Cardiovascular: Regular rate. Chest: Clear. Abdomen: Soft. Extremities: Moves all extremities. ASSESSMENT: 1. Constipation, improved. 2. Abdominal pain with distention, improved. 3. Transaminitis, improved. 4. Chronic hepatitis C. 5. Diabetes. PLAN: We will continue patient in the hospital until he can transfer to rehab. We are going to attempt to bladder train and hopefully remove his Flores. Further orders as needed. cc: Al Aly MD
[2019-06-27 05:51] LABS: BASO# 0.04 X1000 (0.0-0.2); BASO% 0.5 % (0.0-0.8); EOS# 0.25 X1000 (0.0-0.7); HEMATOCRIT 41.5 % (42.0-52.0); IMM GRAN# 0.05 X1000 (0.0-0.04); IMM GRAN% 0.6 % (0.0-0.5); LYMPH# 2.16 X1000 (1.2-3.4); LYMPH% 25.6 % (20.5-51.1); MCHC 31.3 g/dL (33-37); MONO# 0.72 X1000 (0.11-0.59); MONO% 8.5 % (1.7-9.3); MPV 9.3 FL (7.4-10.4); NEUT# 5.22 X1000 (1.4-6.5); NEUT% 61.8 % (42.2-75.2); PLT 437 X1000 (130-400); WBC 8.44 X1000 (4.8-10.8)
[2019-06-27] MEDS: HUMULIN R (PARKWAY) SUBQ SCH ×4 (06:13→21:11)
[2019-06-27 06:17] LABS: AGAP 12; ALBUMIN 4.3 g/dL (3.5-5.0); ALKALINE PHOSPHATASE 128 U/L (32-122); BUN 13 mg/dL (8-22); CALCIUM 9.3 mg/dL (8.8-10.2); CHLORIDE 99 mmol/L (98-107); COSMO 271; CREATININE 0.8 mg/dL (0.7-1.2); ESTIMATED GFR > 60; GLUCOSE 149 mg/dL (70-104); GOT 38 U/L (10-34); GPT 41 U/L (10-44); POTASSIUM 4.8 mmol/L (3.5-5.1); SODIUM 134 mmol/L (136-145); TCO2 23 mmol/L (25-35); TOTAL PROTEIN 7.9 g/dL (6.3-8.3)
[2019-06-27] MEDS: GLUCOPHAGE PO SCH ×2 (08:09→16:48)
[2019-06-27] MEDS: ABILIFY PO SCH (08:09)
[2019-06-27] MEDS: WELLBUTRIN XL PO SCH (08:09)
[2019-06-27] MEDS: FLOMAX PO SCH ×2 (08:09→21:10)
[2019-06-27] MEDS: PRINIVIL PO SCH (08:09)
[2019-06-27] MEDS: GLUCOTROL PO SCH (08:10)
[2019-06-27] MEDS: NORVASC PO SCH (08:10)
[2019-06-27] MEDS: LACTULOSE PO SCH ×2 (08:10→21:11)
[2019-06-27] MEDS: PYRIDOXINE PO SCH (08:10)
[2019-06-27] MEDS: DUONEB (A & A) INH SCH ×3 (09:04→21:59)
--- NOTE | 2019-06-27 21:46 | PROGRESS NOTE ---
DATE: 06/27/2019 SUBJECTIVE: The patient has complaints of difficulty urinating. However, he currently is refusing to have a Flores catheter placed. He has started having bowel movements. Denies any fevers, chills. PHYSICAL EXAMINATION: Pulse 86, respiratory rate 18, BP 119/64.General: Patient is pleasant. He is in no distress. HEENT: Normocephalic. Neck: Supple. Cardiovascular: Regular rate. Chest: Clear, nonlabored. Abdomen: Soft. Extremities: Moves all extremities. Neurologic: No changes. ASSESSMENT: Urinary retention. The patient is actually on 2 medications, doxepin and fluphenazine which can contribute to urinary retention. We are going to stop both of these currently. If he is unable to urinate, we certainly will have to put back in a catheter as noted on his initial HPI. He had severe hydroureteronephrosis which resolved after having a Flores placed. He is also currently on Flomax twice daily. We will continue to follow. cc: Al Aly MD
[2019-06-28 04:26] VITALS: BP 120/75
[2019-06-28 06:38] LABS: AGAP 13; ALBUMIN 4.3 g/dL (3.5-5.0); ALKALINE PHOSPHATASE 141 U/L (32-122); BUN 12 mg/dL (8-22); CALCIUM 9.6 mg/dL (8.8-10.2); CHLORIDE 98 mmol/L (98-107); COSMO 274; CREATININE 0.8 mg/dL (0.7-1.2); ESTIMATED GFR > 60; GLUCOSE 165 mg/dL (70-104); GOT 44 U/L (10-34); GPT 45 U/L (10-44); MAGNESIUM 1.9 mg/dL (1.5-2.7); POTASSIUM 4.5 mmol/L (3.5-5.1); SODIUM 135 mmol/L (136-145); TCO2 24 mmol/L (25-35); TOTAL PROTEIN 7.9 g/dL (6.3-8.3)
[2019-06-28 06:40] LABS: BASO# 0.07 X1000 (0.0-0.2); BASO% 0.9 % (0.0-0.8); EOS# 0.22 X1000 (0.0-0.7); EOS% 2.9 % (0.0-10.0); IMM GRAN# 0.03 X1000 (0.0-0.04); IMM GRAN% 0.4 % (0.0-0.5); LYMPH# 1.98 X1000 (1.2-3.4); LYMPH% 26.3 % (20.5-51.1); MCH 26.1 PG (27-31); MCHC 31.7 g/dL (33-37); MCV 82.3 FL (81-99); MONO# 0.78 X1000 (0.11-0.59); MONO% 10.4 % (1.7-9.3); MPV 9.6 FL (7.4-10.4); NEUT# 4.44 X1000 (1.4-6.5); NEUT% 59.1 % (42.2-75.2); PLT 442 X1000 (130-400); RBC 4.98 XMIL (4.7-6.1); RDW 14.9 % (11.5-14.5); WBC 7.52 X1000 (4.8-10.8)
[2019-06-28] MEDS: HUMULIN R (PARKWAY) SUBQ SCH ×2 (07:12→13:32)
[2019-06-28] MEDS: ABILIFY PO SCH (08:50)
[2019-06-28] MEDS: FLOMAX PO SCH (08:50)
[2019-06-28] MEDS: NORVASC PO SCH (08:50)
[2019-06-28] MEDS: LACTULOSE PO SCH (08:50)
[2019-06-28] MEDS: GLUCOPHAGE PO SCH (08:50)
[2019-06-28] MEDS: GLUCOTROL PO SCH (08:50)
[2019-06-28] MEDS: WELLBUTRIN XL PO SCH (08:50)
[2019-06-28] MEDS: PRINIVIL PO SCH (08:50)
[2019-06-28] MEDS: PYRIDOXINE PO SCH (08:51)
[2019-06-28] MEDS: DUONEB (A & A) INH SCH (10:42)
--- NOTE | 2019-06-28 12:13 | Diag Imaging Result Doc PS360 ---
CHEST-PORTABLE - 06/28/2019 INDICATION: rehab placement COMPARISON: 01/23/2018 FINDINGS: The lungs are normally expanded and clear. Heart size and mediastinal contours are normal. No pneumothorax or pleural effusion. Stable calcified granulomas in the left lung and hilum. IMPRESSION: Negative exam. Electronically signed by Sae Stevens 06/28/2019 12:11 PM
--- NOTE | 2019-06-28 12:25 | DISCHARGE SUMMARY ---
ADMISSION DATE: 06/21/2019 DISCHARGE DATE: 06/28/2019 DISCHARGE DIAGNOSES: 1. Urinary retention. The patient did require Flores catheter. This has been removed. He has been able to urinate for the past 2 days on his own. 2. Hypertension. 3. Diabetes. 4. Schizophrenia. 5. Constipation, improved. 6. Generalized lower extremity weakness. 7. Chronic tobacco abuse. 8. Severe hydroureteronephrosis, resolved after Flores catheter. 9. Chronic hepatitis C. CONSULTATIONS: None. PROCEDURES: None. BRIEF HOSPITAL COURSE: The patient is a 64-year-old male who has a known history of high blood pressure, diabetes, schizophrenia. He currently smokes cigarettes as well as marijuana daily. He presented to the hospital with generalized weakness, constipation, and abdominal distention. Upon further workup, it was noted that he had severe hydroureteronephrosis. Flores catheter was placed and decompressed his bladder. He continued to improve. He did have some difficulty urinating. Some of his psychiatry medications may have been contributing to this. These were held while he was in the hospital, and not restarted on discharge. On discharge, he is awake, alert. He notes that he is urinating without any difficulty. DISPOSITION: The patient will be discharged to rehab. They will continue to follow his urine output. He did have some issues with constipation; that has resolved. He will continue physical therapy. DISCHARGE MEDICATIONS: Will continue his medications, Abilify, Wellbutrin, glipizide, lisinopril, metformin, Norvasc, and fluphenazine. Will stop his doxepin as this may have been contributing or causing his urinary retention. TIME SPENT: Greater than 30 minutes were spent in total care. cc: Al Aly MD [facility]
== END 2019-06-28 15:42 | DRG 696 ==
LOC: P.ED 01:20 → SUATTDRO 08:13 → P.EDIPHOLD 08:13 → P.MEDSURG 09:30
PROVIDERS: ATTEND Family Medicine